=== PATIENT | female | born 1995 | race American Indian/Alaskan Native ===

== ENCOUNTER 2021-11-29 23:32 | Emergency (ER) | payer SELFPAY ==
[2021-11-30 08:05] VITALS: BP 92/50
[2021-11-30] MEDS ORDERED: HYDROcodone/ACETAMINOPHEN 5-325 MG TAB PO ONE (08:15)
--- NOTE | 2021-11-30 08:15 | Emergency Department Report ---
ED General Adult HPI - General Chief complaint: Pain General Stated complaint: LEFT ARM SWOLLEN/INSECT BITE Time Seen by Provider: 11/30/21 07:25 Source: patient Mode of arrival: Ambulatory Limitations: No Limitations - History of Present Illness Initial comments: 25-year-old female no significant past medical history reports to the ER with left hand pain for 5 days. Patient denies any insect bite. Patient reports no known injury to her left hand. Patient reports not taking anything for her symptoms. Patient reports no other acute signs or symptoms at this time. No weakness no fever no chills no nausea no vomiting. Severity scale (0 -10): 5 - Related Data Previous Rx's Medication Instructions Recorded Last Taken Type Ibuprofen [Motrin] 800 mg PO Q8HR PRN 6 Days #18 11/30/21 Unknown Rx tablet Allergies Allergy/AdvReac Type Severity Reaction Status Date / Time No Known Allergies Allergy Verified 11/30/21 08:05 ED Review of Systems ROS: Stated complaint: LEFT ARM SWOLLEN/INSECT BITE Other details as noted in HPI Comment: All other systems reviewed and negative ED Past Medical Hx - Past Medical History Previous Medical History?: No - Surgical History Past Surgical History?: Yes Additional Surgical History: - Medications Home Medications: Home Medications Medication Instructions Recorded Confirmed Last Taken Type Ibuprofen [Motrin] 800 mg PO Q8HR PRN 6 Days #18 11/30/21 Unknown Rx tablet ED Physical Exam - General Limitations: No Limitations General appearance: alert, in no apparent distress - Head Head exam: Present: atraumatic, normocephalic - Eye Eye exam: Present: normal appearance - ENT ENT exam: Present: mucous membranes moist - Neck Neck exam: Present: normal inspection - Respiratory Respiratory exam: Present: normal lung sounds bilaterally. Absent: respiratory distress - Cardiovascular Cardiovascular Exam: Present: regular rate, normal rhythm. Absent: systolic murmur, diastolic murmur, rubs, gallop - GI/Abdominal GI/Abdominal exam: Present: soft, normal bowel sounds - Extremities Exam Extremities exam: Present: normal inspection - Expanded Upper Extremity Exam Left Hand Wrist exam: Present: normal inspection, full ROM, tenderness. Absent: swelling, abrasion, laceration, ecchymosis, deformity - Back Exam Back exam: Present: normal inspection - Neurological Exam Neurological exam: Present: alert, oriented X3 - Psychiatric Psychiatric exam: Present: normal affect, normal mood - Skin Skin exam: Present: warm, dry, intact, normal color. Absent: rash ED Course Vital Signs 11/29/21 11/30/21 23:36 08:03 Temperature 98.2 F 98.4 F Pulse Rate 80 71 Respiratory 15 18 Rate Blood Pressure 97/53 92/50 [Left] O2 Sat by Pulse 97 99 Oximetry ED Medical Decision Making - Medical Decision Making 25-year-old female no significant past medical history reports to the ER with left hand pain for 5 days. Patient denies any insect bite. Patient reports no known injury to her left hand. Patient reports not taking anything for her symptoms. Patient reports no other acute signs or symptoms at this time. No weakness no fever no chills no nausea no vomiting. On physical exam no acute findings noted on left hand. No no insect bite noted. No swelling noted. No erythema noted. No signs of clinical infection noted. Range of motion intact. Patient reports generalized pain with palpation throughout left hand.. No deformities noted no dislocation noted. No left arm swelling noted. No forearm or upper arm tenderness noted. No imaging is needed at this time. Patient given oral pain medication here in the ER. Patient will be sent home with oral prescription for Motrin 800 3 times daily for 6 days as needed for pain. Patient agrees with plan of care and verbalized understanding. Patient stable for discharge home. Vital Signs 11/29/21 11/30/21 23:36 08:03 Temperature 98.2 F 98.4 F Pulse Rate 80 71 Respiratory 15 18 Rate Blood Pressure 97/53 92/50 [Left] O2 Sat by Pulse 97 99 Oximetry Critical care attestation.: If time is entered above; I have spent that time in minutes in the direct care of this critically ill patient, excluding procedure time. ED Disposition Clinical Impression: Left hand pain Disposition: 01 HOME / SELF CARE / HOMELESS Is pt being admited?: No Condition: Stable Instructions: Pain Without a Known Cause, Hand Pain Prescriptions: Ibuprofen [Motrin] 800 mg PO Q8HR PRN 6 Days #18 tablet PRN Reason: Pain , Severe (7-10)
== END 2021-11-30 09:16 | disposition home or self-care (01) ==
LOC: ED 23:32
DX: M79.642 Pain in left hand (principal)
CPT/HCPCS: 99282